=== PATIENT | male | born 1995 | race Caucasian/White ===

== ENCOUNTER 2022-11-07 03:13 | Emergency (ER) | payer OTHER | END 2022-11-07 05:45 | disposition home or self-care (01) | LOC: ERS 03:13 | DX: S82.51XA Displaced fracture of medial malleolus of right tibia, initial encounter for closed fracture (principal); W18.30XA Fall on same level, unspecified, initial encounter ==

== ENCOUNTER 2022-12-08 09:53 | Outpatient (CLI) | payer OTHER | END 2022-12-08 09:54 | disposition home or self-care (01) | LOC: RAD 09:53 | PROVIDERS: ATTEND Nurse Practitioner Family | DX: S82.891D Other fracture of right lower leg, subsequent encounter for closed fracture with routine healing (principal) ==

== ENCOUNTER 2022-12-24 07:18 | Outpatient (CLI) | payer OTHER | END 2022-12-24 07:19 | disposition home or self-care (01) | LOC: BICMRI 07:18 | PROVIDERS: ATTEND Nurse Practitioner Family | DX: S82.891D Other fracture of right lower leg, subsequent encounter for closed fracture with routine healing (principal) ==